=== PATIENT | female | born 1955 | race Caucasian/White ===

== ENCOUNTER 2024-10-19 14:14 | Emergency (ER) | payer MEDICARE, OTHER ==
[2024-10-19] MEDS: Lidocaine 1% with EPINEPHrine 1:100,000 20 ML MDV INFILT STA (14:28)
== END 2024-10-19 14:40 | disposition home or self-care (01) ==
LOC: VM.ED 14:14
DX: S01.01XA Laceration without foreign body of scalp, initial encounter (principal); I10 Essential (primary) hypertension; E78.00 Pure hypercholesterolemia, unspecified; E11.9 Type 2 diabetes mellitus without complications; Z90.49 Acquired absence of other specified parts of digestive tract; Z79.84 Long term (current) use of oral hypoglycemic drugs; Z79.899 Other long term (current) drug therapy; W22.8XXA Striking against or struck by other objects, initial encounter
CPT/HCPCS: 12001; 99283; J3490